=== PATIENT | female | born 1955 | race Caucasian/White ===

== ENCOUNTER → 2023-09-24 10:05 | Outpatient (REF) | payer MEDICARE, OTHER, SELFPAY ==
[2023-09-24 11:13] LABS: Urine Albumin Negative (Neg - Trace); Urine Bilirubin Negative (Negative); Urine Character Clear (Clear); Urine Color Yellow; Urine Glucose Negative (Negative); Urine Ketone Negative (Negative); Urine Leukocyte Negative (Negative); Urine Nitrite Negative (Negative); Urine Occult Blood Negative (Negative); Urine Specific Gravity 1.015 (<1.030); Urine Urobilinogen Negative (Neg - 1+)
[2023-09-24 11:41] LABS: Erythrocyte Sed Rate 15 mm/hour (0-20)
[2023-09-24 11:46] LABS: ALT (SGPT) 22 U/L (0-35); AST (SGOT) 30 U/L (14-36); Albumin 4.6 g/dl (3.5-5.0); Alkaline Phosphatase 93 U/L (38-126); Blood Urea Nitrogen 11 mg/dl (7-17); Calcium 10.3 mg/dl (8.4-10.2); Carbon Dioxide 28 mmol/L (22-30); Chloride 101 mmol/L (98-107); Glucose 86 mg/dl (70-99); Potassium 4.3 mmol/L (3.5-5.1); Sodium 137 mmol/L (135-145); Total Bilirubin 1.1 mg/dl (0.2-1.3); Total Cholesterol 228 mg/dl (50-199); Total Protein 7.5 g/dl (6.3-8.2); Triglyceride 80 mg/dl (10-149); Very Low Density Lipoprotein 16 mg/dl (0-30); eGFR > 60.00
[2023-09-24 11:54] LABS: Free T4 2.01 ng/dl (0.78-2.19); Vitamin D, 25-OH*** 46.5 ng/mL (30-80)
[2023-09-24 12:04] LABS: C-Reactive Protein < 5.00 mg/L (0.0-10.00)
[2023-09-24 12:07] LABS: TSH 0.17 uIU/ml (0.47-4.68)
[2023-09-24 12:23] LABS: Glycohemoglobin (HgbA1c) 5.5 % (4.0-5.6)
[2023-09-24 12:25] LABS: HDL Cholesterol 112 mg/dl; LDL Cholesterol, Calculated 100 mg/dl
[2023-09-26 01:17] LABS: ds-DNA Ab, IgG Reflex To Titer 8 IU (0-24)
[2023-09-26 01:41] LABS: ANA, IgG Reflex to HEp-2 None Detected (None Detected)
[2023-09-26 15:57] LABS: Rheumatoid Agglutinin Less Than 10 IU (<10 IU)
[2023-09-26 17:04] LABS: SSA 52 (Ro)(ENA) Ab, IgG 2 AU/mL (0-40); SSA 60 (Ro)(ENA) Ab, IgG 1 AU/mL (0-40); SSB (La)(ENA) Ab, IgG 0 AU/mL (0-40)
== END ==
LOC: WDC 10:05
PROVIDERS: Internal Medicine Endocrinology, Diabetes & Metabolism; ATTENDING PHYSICIAN Obstetrics & Gynecology; FAMILY PHYSICIAN Internal Medicine Geriatric Medicine
DX: E04.1 Nontoxic single thyroid nodule (principal); M81.0 Age-related osteoporosis without current pathological fracture; Z12.31 Encounter for screening mammogram for malignant neoplasm of breast; R73.9 Hyperglycemia, unspecified; I10 Essential (primary) hypertension; E78.2 Mixed hyperlipidemia; E03.8 Other specified hypothyroidism; J45.909 Unspecified asthma, uncomplicated; M41.112 Juvenile idiopathic scoliosis, cervical region; E55.9 Vitamin D deficiency, unspecified; R01.1 Cardiac murmur, unspecified; M41.9 Scoliosis, unspecified; M54.9 Dorsalgia, unspecified; Z13.89 Encounter for screening for other disorder; M54.32 Sciatica, left side
CPT/HCPCS: 36415; 76536; 77063; 77067; 77080; 80053; 80061; 81003; 82306; 83036; 84439; 84443; 85652; 86038; 86140; 86225; 86235; 86430

== ENCOUNTER → 2023-12-17 09:58 | Outpatient (REF) | payer MEDICARE, OTHER, SELFPAY ==
[2023-12-17 10:41] LABS: Ionized Calcium 1.24 mMOL/L (1.15-1.33)
[2023-12-17 11:20] LABS: Calcium 10.3 mg/dl (8.4-10.2)
[2023-12-17 11:42] LABS: TSH 1.72 uIU/ml (0.47-4.68)
[2023-12-18 10:55] LABS: Intact PTH 35.2 pg/ml (13.6-85.8)
== END ==
LOC: REG 09:58
PROVIDERS: ATTENDING PHYSICIAN Internal Medicine Endocrinology, Diabetes & Metabolism; FAMILY PHYSICIAN Internal Medicine Geriatric Medicine
DX: I10 Essential (primary) hypertension (principal); E78.2 Mixed hyperlipidemia; E03.8 Other specified hypothyroidism; J45.909 Unspecified asthma, uncomplicated; E04.1 Nontoxic single thyroid nodule; M41.112 Juvenile idiopathic scoliosis, cervical region; E55.9 Vitamin D deficiency, unspecified; R01.1 Cardiac murmur, unspecified; M41.9 Scoliosis, unspecified; M54.9 Dorsalgia, unspecified; Z13.89 Encounter for screening for other disorder; M54.32 Sciatica, left side; E83.52 Hypercalcemia; E03.9 Hypothyroidism, unspecified
CPT/HCPCS: 36415; 82330; 83970; 84439; 84443

== ENCOUNTER → 2024-06-02 10:02 | Outpatient (REF) | payer MEDICARE, OTHER, SELFPAY ==
[2024-06-02 11:02] LABS: % Basophils 0.6 % (0-2); % Immature Granulocytes 0.5 % (0-0.5); % Lymphocytes 14.1 % (20.5-51.1); % Monocytes 11.3 % (1.7-9.3); % Neutrophils 72.5 % (42.2-75.2); Absolute Eosinophils 0.1 10^3/uL (0-0.7); Absolute Lymphocytes 0.9 10^3/uL (1.2-3.4); Absolute Monocytes 0.7 10^3/uL (0.1-0.6); Absolute Neutrophils 4.6 10^3/uL (1.4-6.5); Hematocrit 42.7 % (37.0-47.0); Hemoglobin 14.2 g/dL (12.0-16.0); Mean Corp Hgb Conc. 33.3 g/dL (33.0-37.0); Mean Corpuscular Volume 93.2 fL (81.0-99.0); Mean Platelet Volume 9.7 fL (7.4-10.4); Nucleated Red Blood Cells % 0 %; Platelet Count 264 10^3/uL (130-400); Red Blood Cell Count 4.58 10^6/uL (4.20-5.40); Red Cell Dist. Width 12.3 % (11.5-14.5); White Blood Cell Count 6.3 10^3/uL (4.8-10.8)
[2024-06-02 11:52] LABS: ALT (SGPT) 23 U/L (0-35); AST (SGOT) 29 U/L (14-36); Albumin 4.2 g/dl (3.5-5.0); Alkaline Phosphatase 85 U/L (38-126); Blood Urea Nitrogen 13 mg/dl (7-17); Calcium 9.6 mg/dl (8.4-10.2); Carbon Dioxide 31 mmol/L (22-30); Chloride 102 mmol/L (98-107); Glucose 85 mg/dl (70-99); Potassium 4.2 mmol/L (3.5-5.1); Sodium 137 mmol/L (135-145); Total Bilirubin 0.7 mg/dl (0.2-1.3); Total Cholesterol 259 mg/dl (50-199); Total Protein 6.9 g/dl (6.3-8.2); Triglyceride 117 mg/dl (10-149); Very Low Density Lipoprotein 23 mg/dl (0-30); eGFR > 60.00
[2024-06-02 12:07] LABS: Free T4 1.37 ng/dl (0.78-2.19)
[2024-06-02 16:50] LABS: HDL Cholesterol 118 mg/dl; LDL Cholesterol, Calculated 118 mg/dl
== END ==
LOC: REG 10:02
PROVIDERS: ATTENDING PHYSICIAN Internal Medicine Geriatric Medicine
DX: E06.3 Autoimmune thyroiditis (principal); I10 Essential (primary) hypertension; E78.2 Mixed hyperlipidemia; E03.8 Other specified hypothyroidism; J45.909 Unspecified asthma, uncomplicated; E04.1 Nontoxic single thyroid nodule; E55.9 Vitamin D deficiency, unspecified; R01.1 Cardiac murmur, unspecified; M41.9 Scoliosis, unspecified; M54.9 Dorsalgia, unspecified; Z13.89 Encounter for screening for other disorder; M54.32 Sciatica, left side; E83.52 Hypercalcemia; Z23 Encounter for immunization
CPT/HCPCS: 36415; 80053; 80061; 84439; 84443; 85025

== ENCOUNTER → 2024-06-19 13:13 | Outpatient (REF) | payer MEDICARE, OTHER, SELFPAY ==
[2024-06-19 14:07] LABS: Creatine Phosphokinase 65 U/L (30-135)
[2024-06-19 14:13] LABS: C-Reactive Protein < 5.00 mg/L (0.0-10.00)
[2024-06-19 14:29] LABS: Vitamin D, 25-OH*** 47.3 ng/mL (30-80)
[2024-06-19 15:03] LABS: Erythrocyte Sed Rate 2 mm/hour (0-20)
== END ==
LOC: REG 13:13
PROVIDERS: ATTENDING PHYSICIAN Internal Medicine Geriatric Medicine
DX: E78.2 Mixed hyperlipidemia (principal); I10 Essential (primary) hypertension; M60.9 Myositis, unspecified; E03.8 Other specified hypothyroidism; J45.909 Unspecified asthma, uncomplicated; E04.1 Nontoxic single thyroid nodule; E55.9 Vitamin D deficiency, unspecified; R01.1 Cardiac murmur, unspecified; M41.9 Scoliosis, unspecified; M54.9 Dorsalgia, unspecified; Z13.89 Encounter for screening for other disorder; M54.32 Sciatica, left side; E83.52 Hypercalcemia; Z23 Encounter for immunization; T46.6X5A Adverse effect of antihyperlipidemic and antiarteriosclerotic drugs, initial encounter
CPT/HCPCS: 36415; 82306; 82550; 85652; 86140

== ENCOUNTER → 2024-07-02 07:43 | Outpatient (REF) | payer MEDICARE, OTHER, SELFPAY | LOC: RAD 07:43 | PROVIDERS: ATTENDING PHYSICIAN Internal Medicine Geriatric Medicine | DX: R09.89 Other specified symptoms and signs involving the circulatory and respiratory systems (principal) | CPT/HCPCS: 93925 ==

== ENCOUNTER → 2024-09-07 11:43 | Outpatient (REF) | payer MEDICARE, OTHER, SELFPAY ==
[2024-09-07 12:54] LABS: Free T4 1.49 ng/dl (0.78-2.19)
== END ==
LOC: REG 11:43
PROVIDERS: ATTENDING PHYSICIAN Internal Medicine Endocrinology, Diabetes & Metabolism; FAMILY PHYSICIAN Internal Medicine Geriatric Medicine
DX: E03.9 Hypothyroidism, unspecified (principal)
CPT/HCPCS: 36415; 84439; 84443

== ENCOUNTER 2024-12-14 10:31 | Emergency (ER) | payer MEDICARE, OTHER, SELFPAY ==
[2024-12-14 10:54] VITALS: BP 195/103
[2024-12-14 11:41] VITALS: BMI 27.4
[2024-12-14 12:02] VITALS: BP 162/81
[2024-12-14 12:04] VITALS: BP 162/81
[2024-12-14] MEDS: NSS 500 IV (12:37)
[2024-12-14 12:50] LABS: Hematocrit 43.7 % (37.0-47.0); Hemoglobin 14.4 g/dL (12.0-16.0); Mean Corp Hgb Conc. 33.0 g/dL (33.0-37.0); Mean Corpuscular Volume 93.0 fL (81.0-99.0); Nucleated Red Blood Cells % 0 %; Platelet Count 280 10^3/uL (130-400); Red Cell Dist. Width 12.3 % (11.5-14.5)
[2024-12-14 13:05] LABS: ALT (SGPT) 21 U/L (0-35); AST (SGOT) 25 U/L (14-36); Albumin 4.8 g/dl (3.5-5.0); Alkaline Phosphatase 97 U/L (38-126); Blood Urea Nitrogen 13 mg/dl (7-17); Calcium 10.2 mg/dl (8.4-10.2); Carbon Dioxide 29 mmol/L (22-30); Chloride 103 mmol/L (98-107); Estimated Creatinine Clearance 88 ml/min; Glucose 92 mg/dl (70-99); Potassium 4.4 mmol/L (3.5-5.1); Sodium 138 mmol/L (135-145); Total Protein 7.9 g/dl (6.3-8.2); eGFR > 60.00
--- NOTE | 2024-12-14 13:09 | ED.GENMED ---
History of Present Illness
General
Chief Complaint: Chest Problem
Source: patient
Exam Limitations: none
Time Seen by Provider: 12/14/24 11:47
Nursing documentation reviewed up to this point in time: agreed with
History of Present Illness
History of Present Illness:
Patient is a 69-year-old female with history of hypertension, hyperlipidemia, macular degeneration who presents to the emergency department for evaluation of right-sided chest pain. Patient reports she had a mechanical fall 10 days ago when she
slipped and fell on the stairs. She landed on her buttocks however after fall noticed pain in her right mid chest. Pain is worse with certain positions, movement, especially when reaching out her right arm. She also experiences worsening
discomfort when taking a deep breath.
She was seen by her primary care provider last week who did an x-ray of her right ribs/chest which showed no evidence of acute fracture. Patient has been treating symptoms conservatively at home however referred to the emergency department for CT
imaging given persistent discomfort.
Patient denies any head strike, LOC, or injury to lower extremities during fall. She denies any exertional chest pain, back pain. No fever, productive cough, lower extremity swelling. She has no recent travel or surgeries. No exogenous hormone
use. No personal or family history of blood clots/clotting disorders.
Review of Systems
Review of Systems
Allergies reviewed?: Yes
All Other Systems: ROS reviewed and negative except as documented in HPI and ROS
Phy Exam
Physical Exam
Physical Exam:
Vitals: Hypertensive on arrival, otherwise vital signs stable. Afebrile
General: Patient is well appearing, no acute distress. Nontoxic appearing
Skin: Warm and dry, no rashes or lesions
Head: Normocephalic, atraumatic
Eyes: Sclera nonicteric.
Throat: Protecting airway
Neck: Normal ROM, no cervical spine tenderness, no meningismus
Cardiac: Regular rate and rhythm, no murmurs. Point tenderness to right mid chest wall as well as sternal border. No rash or ecchymoses
Pulm: Normal respiratory effort, no wheezes, rales, rhonchi heard on exam
Abdomen: No abdominal tenderness.
Back: No midline spinal tenderness.
Extremities: No evidence of cyanosis or edema. Strength 5/5 in bilateral lower extremities with normal sensation
Neuro: AAOx3. Grossly intact.
Psychiatric: Normal affect.
Course
Orders/Labs/Results
Orders:
Orders
12/14/24 11:00
Electrocardiogram (*1) Urgent
Reason for Study: Chest Pain
EKG- Treatment ONCE
12/14/24 12:24
0.9% Sodium Chloride 500 ml [Nss] 500 ml IV BOLUS
12/14/24 12:30
D-Dimer Urgent
12/14/24 12:40
Complete Blood Count/With Diff Urgent
Comprehensive Metabolic Panel Urgent
Troponin I Urgent
12/14/24 13:[address] [CT Chest W/o Iv Contrast] Urgent
Comment:
Reason For Exam: right sided chest pain, recent fall
12/14/24 14:32
Acetaminophen [Tylenol] 650 mg .ROUTE .STK-MED ONE
12/14/24 14:33
Acetaminophen [Tylenol] 650 mg PO NOW STA
12/14/24 15:24
Incentive Spirometry [Rx Incentive Spirometry] [RESP] Urgent
Frequency: q1h while awake
12/14/24 15:27
Lidocaine [Lidocaine 4% Patch] 1 patch TOPICAL NOW STA
Apply Lidocaine patch(s) to:: right chest
Abnormal Lab Results
12/14/24 12/14/24
12:30 12:40
Absolute Neuts (auto) 6.9 H 10^3/uL
(1.4-6.5)
Absolute Lymphs (auto) 0.9 L 10^3/uL
(1.2-3.4)
Absolute Monos (auto) 0.8 H 10^3/uL
(0.1-0.6)
Neutrophils % 80.1 H %
(42.2-75.2)
Lymphocytes % 9.9 L %
(20.5-51.1)
D-Dimer 0.51 H ug/mlFEU
(0.00-0.50)
Creatinine 0.5 L mg/dL
(0.6-1.0)
12/14/24 12:40
12/14/24 12:40
Vital Signs
Initial and Last Documented VS:
Initial Vital Signs
Temp Pulse Resp BP Pulse Ox
97.9 F 88 16 195/103 94
12/14/24 10:54 12/14/24 10:54 12/14/24 10:54 12/14/24 10:54 12/14/24 10:54
Last Documented Vital Signs
Temp Pulse Resp BP Pulse Ox
97.9 F 88 16 150/85 93
12/14/24 10:54 12/14/24 14:00 12/14/24 14:00 12/14/24 15:00 12/14/24 15:30
MDM/Problems Addressed
Differential Diagnosis Includes:
Not limited to: Costochondritis, pleurisy, rib contusion, rib fracture, pulmonary embolism, pneumothorax, etc.
MDM/Problems Addressed:
69 y.o female with persistent right sided chest wall pain after fall 10 days ago. Pain exacerbated with both certain movements and inspiration. No exertional component or fevers. No hx of head strike or other injuries sustained during fall. Patient
had negative xray imaging of right ribs just following fall. Vitals and physical exam as above.
Given hx of recent trauma - likely chest wall contusion/ muscular strain. However given pleuritic nature and persistence despite conservative measures at home - cardiac/ pulmonary etiologies would also be on differential. Will check labs, troponin,
EKG. Will screen with d-dimer and give tylenol for pain. Will closely monitor and reassess.
Update: Labs without clinically significant abnormalities. troponin undetectable and age-adjusted d-dimer normal. Clinical picture most consistent with costochondritis / contusion. Will obtain non-contrast CT chest to ensure no evidence of rib
fracture.
Update: CT chest without evidence of acute traumatic injuries. Patient remains stable in ED. Feel appropriate for discharge home w/ supprotive care and primary care f/u. Patient given incentive spriometer and instructions for use. Return precautions
discussed.
Chronic conditions affecting care:
Hypertension
Acute Exacerbation and/or Progression of Chronic Illness:
Acutely hypertensive
*Radiology
Radiology exam reviewed: radiology read reviewed
*Pulse Oximetry
SaO2: 93
Oxygen Mode of Delivery: Room air
Patient hypoxic: no
*EKG
Interpreted by ED Provider?: Yes
EKG Intrepretation Date: 12/14/24
Interpretation: abnormal
Comparison EKG: changes noted
Heart Rate: 87
Rate: normal
Rhythm: sinus
QRS Pattern: right bundle branch block
Ischemia: no ischemia
*Domestic Laundry Worker Interpretation
Rate: normal
Interpretation: normal
Heart Rate: 86
Rhythm: sinus
*Critical Care Note
Total Time (30-74mins, 75-104mins- exclusive of procedures): Not Applicable
Data Reviewed
Review of Other/Old Records Reveals: Radiology Studies (X-ray and rib series performed 12/07/2024-no acute fracture)
ED Attending Note
-
Portions of this chart may have been created with voice recognition software.� Occasional wrong word or��sound alike� substitutions may have occurred due to the inherent limitations of voice recognition software.
Discharge Plan
Departure
Patient Disposition: Home (Routine Discharge)
Date of Disposition: 12/14/24
Time of Disposition: 15:24
Patient with high blood pressure during this ER visit?: Yes
Condition: Good
Discharge Problem:
Anterior chest wall pain
Instructions: Costochondritis, Chest Pain (DC), BLOOD PRESSURE
Referrals:
Valente Suh MD [Family Provider, Internal Medicine] - Follow up in 5-7 days
Activity Restrictions/Additional Instructions:
RETURN TO THE EMERGENCY DEPARTMENT WITH ANY FEVER, PRODUCTIVE COUGH, WORSENING CHEST PAIN, ANY SHORTNESS OF BREATH/DIFFICULTY BREATHING, LIGHTHEADEDNESS/DIZZINESS OR ANY OTHER CONCERNS
- As discussed�your labs including cardiac enzymes showed no acute abnormalities. Your CT chest showed no evidence of rib fracture. I suspect likely chest wall pain secondary to costochondritis or contusion.
- Continue to take Tylenol as needed for pain. You can apply topical lidocaine patches. You should use incentive spirometer up to 10 times per hour when awake to continue to inflate your lungs.
-Follow-up with primary care for further evaluation/management to ensure that your symptoms improve
Monitor your symptoms closely and return to the emergency department with any acute worsening/new symptoms or any other concerns
Interventions
Interventions:
*Risk Screen - Suicide Last Done: 12/14/24 11:42
*General Assessment Last Done: 12/14/24 11:41
*Neglect/Abuse Screening Last Done: 12/14/24 11:42
*ED- Fall Risk Assessment Last Done: 12/14/24 11:41
*ED COVID-19 Vaccine History Last Done: 12/14/24 11:41
*Nursing Disposition Last Done: 12/14/24 16:08
ED- Cardiac Assessment Last Done: 12/14/24 12:39
ED- Pulmonary Assessment Last Done: 12/14/24 11:51
Discharge Date and Time
Discharge Date/Time: 12/14/24 16:05
Print Language: TONGAN
[2024-12-14 13:16] LABS: Troponin I < 0.012 ng/ml
[2024-12-14 13:21] LABS: D-Dimer 0.51 ug/mlFEU (0.00-0.50)
[2024-12-14 13:52] VITALS: BP 160/89
[2024-12-14 14:30] VITALS: BP 158/73
[2024-12-14] MEDS: TYLENOL 650 MG PO (14:33)
[2024-12-14 15:00] VITALS: BP 150/85
[2024-12-14] MEDS: LIDOCAINE 4% PATCH 1 PATCH TOPICAL (15:49)
== END 2024-12-14 16:05 | disposition home or self-care (01) ==
LOC: EMR 10:31
PROVIDERS: Physician Assistant; EMERGENCY PHYSICIAN Emergency Medicine; FAMILY PHYSICIAN Internal Medicine Geriatric Medicine
DX: R07.89 Other chest pain (principal); E78.5 Hyperlipidemia, unspecified; I10 Essential (primary) hypertension; I45.10 Unspecified right bundle-branch block
CPT/HCPCS: 99284; 71250; 80053; 84484; 85025; 85379; 93005

== ENCOUNTER 2025-02-01 12:49 | Emergency (ER) | payer MEDICARE, OTHER, SELFPAY ==
[2025-02-01 12:52] VITALS: BP 199/119
--- NOTE | 2025-02-01 13:19 | ED.SKININJ ---
HPI-Injury
General
Chief Complaint: Bite
Time Seen by Provider: 02/01/25 13:02
History of Present Illness-Injury
Initial Injury comments:
69-year-old female with history of hypertension and hyperlipidemia presents to the emergency department for evaluation of a bite wound to the right middle finger, states she was attempting to bring her cat to the vet when her cat bit her. Cat is
up-to-date on rabies vaccinations. Seen by her primary care physician and referred to the ER for further evaluation
Review of Systems
Review of Systems
Allergies reviewed?: Yes
All Other Systems: ROS reviewed and negative except as documented in HPI and ROS
Phy Exam
Physical Exam
Physical Exam:
GEN: Well appearing, NAD, WDWN
HEENT: Oral mucosa moist, no scleral icterus
Cardiac: Regular rate
Lung: No respiratory distress, no tachypnea
MSK: No gross deformity or injuries
Skin: Good color, no pallor or jaundice, minor laceration to the finger pad of the right middle finger with no active bleeding, no ecchymosis to the digit, no injury to the nail plate or nailbed
Neuro: AO x3, moves all extremities freely
Psych: Calm, cooperative
Course
Vital Signs
Initial and Last Documented VS:
Initial Vital Signs
Temp Pulse Resp BP Pulse Ox
98.2 F 113 18 199/119 95
02/01/25 12:52 02/01/25 12:52 02/01/25 12:52 02/01/25 12:52 02/01/25 12:52
Last Documented Vital Signs
Temp Pulse Resp BP Pulse Ox
98.2 F 91 20 164/106 99
02/01/25 12:52 02/01/25 13:21 02/01/25 13:21 02/01/25 13:21 02/01/25 13:21
MDM/Problems Addressed
MDM/Problems Addressed:
Patient had antibiotics for primary care physician and tetanus was updated in their office. I irrigated the wound, there is no indication for primary closure, no indication for imaging
*Pulse Oximetry
SaO2: 95
Oxygen Mode of Delivery: Room air
Patient hypoxic: no
*Critical Care Note
Total Time (30-74mins, 75-104mins- exclusive of procedures): Not Applicable
ED Attending Note
-
Portions of this chart may have been created with voice recognition software.� Occasional wrong word or��sound alike� substitutions may have occurred due to the inherent limitations of voice recognition software.
Discharge Plan
Departure
Patient Disposition: Home (Routine Discharge)
Date of Disposition: 02/01/25
Time of Disposition: 13:19
Patient with high blood pressure during this ER visit?: No
Discharge Problem:
Open wound of right middle finger due to cat bite
Instructions: Animal Bites (DC)
Activity Restrictions/Additional Instructions:
Wash with soap and water multiple times each day
Keep covered until wound heals
Take the antibiotics as prescribed by your primary doctor; if the wound appears red, hot or painful tomorrow, take the full 7 day course. Otherwise, 3 days of preventive antibiotics will suffice
Return if the wound becomes infected and you develop a fever
Interventions
Interventions:
*Risk Screen - Suicide Last Done: 02/01/25 13:15
*General Assessment Last Done: 02/01/25 13:15
*Neglect/Abuse Screening Last Done: 02/01/25 13:15
*ED COVID-19 Vaccine History Last Done: 02/01/25 13:15
*ED Influenza Vaccine History Last Done: 02/01/25 13:15
*Nursing Disposition Last Done: 02/01/25 13:30
ED-Skin Assessment Last Done: 02/01/25 13:15
Discharge Date and Time
Discharge Date/Time: 02/01/25 13:30
Print Language: MARTINIQUAIS
[2025-02-01 13:21] VITALS: BP 164/106
== END 2025-02-01 13:30 | disposition home or self-care (01) ==
LOC: EMR 12:49
PROVIDERS: EMERGENCY PHYSICIAN Emergency Medicine; FAMILY PHYSICIAN Internal Medicine Geriatric Medicine
DX: S61.252A Open bite of right middle finger without damage to nail, initial encounter (principal); W55.01XA Bitten by cat, initial encounter; I10 Essential (primary) hypertension; E78.5 Hyperlipidemia, unspecified
CPT/HCPCS: 99282